=== PATIENT | female | born 2005 | race African-American/Black ===

== ENCOUNTER 2024-02-26 13:53 | Emergency (ER) | payer OTHER ==
[~2024-02-26] VITALS: Ht 160 cm; Wt 59.8 kg
[2024-02-26 15:12] LABS: BASO % 0.3 % (0.0-1.0); EOS # 0.2 10^3/uL (0.0-0.5); EOS % 1.8 % (0.0-3.0); HEMOGLOBIN 12.1 g/dl (12.0-15.5); LYMPH # 2.2 10^3/uL (1.5-5.0); LYMPH % 19.6 % (24.0-44.0); MEAN CORPUSCULAR HEMOGLOBIN 27.1 pg (27.0-33.0); MEAN CORPUSCULAR HGB CONC 31.8 g/dl (32.0-36.5); MONO % 8.5 % (2.0-8.0); NEUTROPHILS # 7.8 10^3/uL (1.5-8.5); NEUTROPHILS % 69.4 % (36.0-66.0); PLATELET COUNT, AUTOMATED 271 10^3/uL (150-450); RED BLOOD COUNT 4.47 10^6/uL (4.00-5.40); WHITE BLOOD COUNT 11.3 10^3/uL (4.0-10.0)
[2024-02-26 15:30] LABS: BLOOD UREA NITROGEN 12 MG/DL (9-23); CALCIUM LEVEL 8.9 MG/DL (8.5-10.1); CARBON DIOXIDE LEVEL 28 MMOL/L (20-31); CHLORIDE LEVEL 104 MMOL/L (98-107); CREATININE FOR GFR 0.64 MG/DL (0.55-1.30); GLUCOSE, FASTING 86 MG/DL (60-100); POTASSIUM SERUM 4.4 MMOL/L (3.5-5.1); SODIUM LEVEL 137 MMOL/L (136-145)
[2024-02-26] MEDS: ACETAMINOPHEN 500 MG TAB PO ONE (19:21)
[2024-02-26 19:31] VITALS: BP 122/70; TEMP 98.1; O2SAT 100
== END 2024-02-26 19:32 | disposition home or self-care (01) ==
LOC: M ED 13:53
DX: R10.9 Unspecified abdominal pain (principal); Z3A.12 12 weeks gestation of pregnancy

== ENCOUNTER 2024-06-29 06:48 | Outpatient (CLI) | payer OTHER ==
[2024-06-29] VITALS (7 sets, daily range): BP systolic 105–131; BP diastolic 56–65
[~2024-06-29] VITALS: Ht 160 cm; Wt 72.0 kg
[2024-06-29] MEDS ORDERED: PRENTAB9 PO (07:06)
[2024-06-29] MEDS ORDERED: ACET325C5 PO (07:06)
[2024-06-29] MEDS ORDERED: UNIS25TA3 PO (07:06)
[2024-06-29 07:51] LABS: BASO % 0.3 % (0.0-1.0); EOS # 0.1 10^3/uL (0.0-0.5); EOS % 0.8 % (0.0-3.0); HEMATOCRIT 33.7 % (36.0-47.0); HEMOGLOBIN 10.9 g/dl (12.0-15.5); LYMPH # 1.9 10^3/uL (1.5-5.0); LYMPH % 16.2 % (24.0-44.0); MEAN CORPUSCULAR HEMOGLOBIN 27.5 pg (27.0-33.0); MEAN CORPUSCULAR HGB CONC 32.3 g/dl (32.0-36.5); MEAN CORPUSCULAR VOLUME 84.9 fl (80.0-96.0); MONO # 1.1 10^3/uL (0.0-0.8); MONO % 9.1 % (2.0-8.0); NEUTROPHILS # 8.5 10^3/uL (1.5-8.5); NEUTROPHILS % 72.8 % (36.0-66.0); PLATELET COUNT, AUTOMATED 223 10^3/uL (150-450); RED BLOOD COUNT 3.97 10^6/uL (4.00-5.40); WHITE BLOOD COUNT 11.6 10^3/uL (4.0-10.0)
[2024-06-29] MEDS: LR 1,000 ML IV ONE (07:53)
[2024-06-29 08:07] LABS: APPEARANCE, URINE HAZY (CLEAR); BACTERIA, URINE AUTO 1+ (NEGATIVE); BILIRUBIN, URINE AUTO NEGATIVE (NEGATIVE); BLOOD, URINE BLOOD NEGATIVE (NEGATIVE); COLOR, URINE YELLOW (YELLOW); GLUCOSE, URINE (UA) AUTO NEGATIVE (NEGATIVE); KETONE, URINE AUTO NEGATIVE (NEGATIVE); LEUKOCYTE ESTERASE, URINE AUTO NEGATIVE (NEGATIVE); MUCUS, URINE SMALL (NEGATIVE); NITRITE, URINE AUTO NEGATIVE (NEGATIVE); PROTEIN, URINE AUTO NEGATIVE (NEGATIVE); RBC, URINE AUTO 0 /HPF (0-3); SPECIFIC GRAVITY URINE AUTO 1.009 (1.002-1.035); SQUAMOUS EPITHELIAL CELL UR AU 5 /HPF (0-6); UROBILINOGEN, URINE AUTO 0.2 mg/dL (0.0-2.0); WBC, URINE AUTO 1 /HPF (0-3)
[2024-06-29 08:10] LABS: ALBUMIN 2.6 G/DL (3.2-5.2); ALKALINE PHOSPHATASE 93 U/L (46-116); ALT/SGPT 22 U/L (7.0-40); AST/SGOT 24 U/L (<34); BILIRUBIN,TOTAL 0.4 MG/DL (0.3-1.2); BLOOD UREA NITROGEN 7 MG/DL (9-23); CALCIUM LEVEL 9.1 MG/DL (8.5-10.1); CARBON DIOXIDE LEVEL 24 MMOL/L (20-31); CHLORIDE LEVEL 107 MMOL/L (98-107); CREATININE FOR GFR 0.61 MG/DL (0.55-1.30); GLOMERULAR FILTRATION RATE > 60.0 (>60); GLUCOSE, FASTING 76 MG/DL (60-100); POTASSIUM SERUM 3.9 MMOL/L (3.5-5.1); SODIUM LEVEL 137 MMOL/L (136-145)
[2024-06-29] MEDS ORDERED: ONDANSETRON 4MG 2ML VIAL IV ONE (09:05)
[2024-06-29] MEDS: LR 1,000 ML IV SCH (09:28)
[2024-06-29] MEDS: MORPHINE 10 MG/ML 1ML VIAL IV ONE (09:38)
[2024-06-29] MEDS: TERBUTALINE SULFATE 1 MG/ML 1ML VIAL SC SCH (12:35)
[2024-06-29] MEDS: PROMETHAZINE 25MG/ML 1ML VIAL IV ONE (17:10)
[2024-06-29] MEDS: BUTORPHANOL 2 MG/ML 1ML VIAL IV ONE (17:11)
[2024-06-30 00:05] VITALS: BP 124/63
[2024-06-30 03:09] VITALS: BP 115/58
[2024-06-30 06:15] LABS: HEMOGLOBIN 9.7 g/dl (12.0-15.5); MEAN CORPUSCULAR HEMOGLOBIN 26.7 pg (27.0-33.0); MEAN CORPUSCULAR HGB CONC 31.3 g/dl (32.0-36.5); MEAN CORPUSCULAR VOLUME 85.4 fl (80.0-96.0); PLATELET COUNT, AUTOMATED 202 10^3/uL (150-450); RED BLOOD COUNT 3.63 10^6/uL (4.00-5.40); WHITE BLOOD COUNT 8.7 10^3/uL (4.0-10.0)
[2024-06-30 07:11] VITALS: BP 122/57
== END 2024-06-30 09:53 | disposition home or self-care (01) ==
LOC: M LDO 06:48
PROVIDERS: ATTEND Obstetrics & Gynecology
DX: O47.03 False labor before 37 completed weeks of gestation, third trimester (principal); Z3A.29 29 weeks gestation of pregnancy
CPT/HCPCS: 36415; 59025; 74176; 76815; 76820; 76857; 80053; 81001; 85025; 85027; 96372; 96374; 96375; G0463; J0595; J2550; J3105

== ENCOUNTER → 2025-11-09 | Outpatient (CLI) | payer OTHER ==
[~2025-11-09] MED LIST: ACET325C5 PO; ISOVUE-300 61% 100 ML VIAL As Ordered ONE; LIDOCAINE 1% MDV 20 ML VIAL As Ordered ONE; PRENTAB9 PO; TRIAMCINOLONE ACETONIDE SUSP 40MG/ML 1ML VIAL As Ordered ONE; UNIS25TA3 PO
== END ==
LOC: M RAD 15:00
PROVIDERS: ATTEND Physician Assistant Surgical
DX: S73.121A Ischiocapsular ligament sprain of right hip, initial encounter (principal); X58.XXXA Exposure to other specified factors, initial encounter; Y92.9 Unspecified place or not applicable
CPT/HCPCS: 20610; 77002; J3301; Q9967